=== PATIENT | female | born 2000 | race Asian ===

== ENCOUNTER 2022-12-11 13:00 | Outpatient (CLI) | payer OTHER, SELFPAY ==
[2022-12-11 17:49] LABS: Chlamydia DNA Amplified* NOT DETECTED (No Detected); GC DNA Amplified* NOT DETECTED (No Detected)
== END 2022-12-11 13:01 | disposition home or self-care (01) ==
PROVIDERS: Visit Provider Obstetrics & Gynecology
DX: Z01.419 Encounter for gynecological examination (general) (routine) without abnormal findings (principal); Z12.4 Encounter for screening for malignant neoplasm of cervix; Z11.3 Encounter for screening for infections with a predominantly sexual mode of transmission
CPT/HCPCS: 87491; 87591

== ENCOUNTER 2023-02-05 15:09 | Outpatient (CLI) | payer OTHER, SELFPAY | END 2023-02-05 15:10 | disposition home or self-care (01) | LOC: NFLDREF 15:13 | PROVIDERS: PCP Obstetrics & Gynecology; Visit Provider Obstetrics & Gynecology | DX: N91.1 Secondary amenorrhea (principal); Z30.09 Encounter for other general counseling and advice on contraception; F41.1 Generalized anxiety disorder; F40.10 Social phobia, unspecified; G43.909 Migraine, unspecified, not intractable, without status migrainosus; H53.149 Visual discomfort, unspecified; R87.612 Low grade squamous intraepithelial lesion on cytologic smear of cervix (LGSIL) | CPT/HCPCS: 83001; 83498; 84146; 84270; 84402; 84403; 84443 ==